=== PATIENT | male | born 1995 | race Caucasian/White ===

== ENCOUNTER 2022-11-10 14:17 | Emergency (ER) | payer MEDICARE, SELFPAY ==
--- NOTE | ~2022-11-10 | XR_ITS ---
EXAMINATION: XR ANKLE, RIGHT CLINICAL INFORMATION: Pain, injury COMPARISON: None available. TECHNIQUE: AP, lateral, and mortise views of the right ankle. FINDINGS: There is moderate lateral lateral malleolar soft tissue swelling. No visible acute fracture, dislocation seen. The ankle mortise and subtalar joints are normal. XR/XR ankle RT min 3V IMPRESSION: Moderate lateral malleolar soft tissue swelling likely ligamentous injury. No visible acute fracture or dislocation seen.
--- NOTE | 2022-11-10 14:36 | ED.GENADULT ---
HPI - General Adult General Chief complaint: Extremity Injury, Lower Stated complaint: r ankle inj Time Seen by Provider: 11/10/22 14:51 Source: patient Mode of arrival: ambulatory Limitations: no limitations History of Present Illness HPI narrative: [age] year male reports to the ER for evaluation of right ankle pain and swelling after he twisted it while playing basketball yesterday. He reports pain is worse with weight-bearing. MD complaint: right ankle pain Onset (ago): day(s) (1) Location: right and lower extremity Radiation: non-radiation Severity: moderate Quality: aching Pain Consistency: intermittent Relieving factors: immobilization and rest Exacerbating factors: movement Associated symptoms: denies other symptoms Treatments prior to arrival: none Related Data Previous Rx's Medication Instructions Recorded ibuprofen 600 mg tablet 600 mg PO Q8H PRN pain #20 tabs 11/10/22 Allergies Allergy/AdvReac Type Severity Reaction Status Date / Time No Known Allergies Allergy Verified 11/10/22 14:41 Review of Systems Review of Systems: Yes all other systems are reviewed and are negative [facility] Social History Social History Advance Directives: No Advance Directives Information Provided: No Physical Exam ED Vital Signs: Vital Signs - 24 hr 11/10/22 14:42 Temperature 97.7 F Pulse Rate 75 Respiratory Rate 16 Blood Pressure 119/71 Pulse Oximetry 99 Oxygen Delivery Method Room Air BMI result Body Mass Index 28.5 Appearance: Alert. Oriented X3. No acute distress. HEENT: normal inspection CVS: Normal heart rate and rhythm. Pulses normal. Respiratory: No respiratory distress. Skin: Skin warm and dry. Normal skin color. Normal skin turgor. No rashes. Extremities: Neuro: Oriented X 3. No motor deficit. No sensory deficit. Ambulates with an antalgic gait Course Course Course Narrative: RME performed by Patricia Evangelista PA-C. Patient is a 27 year old assigned male at presenting to the emergency department with right ankle pain. Imaging ordered. Patient placed back in the waiting room pending room availability and results. Medications Administered Discontinued Medications Generic Name Dose Route Start Last Admin Trade Name Freq PRN Reason Stop Dose Admin Ibuprofen 600 mg 11/10/22 15:50 11/10/22 16:04 Ibuprofen 600 Mg Tablet PO 11/10/22 15:51 600 mg ONCE ONE Administration Medical Decision Making Medical Decision Making MDM Narrative: 27-year-old male presents to the ER for evaluation of right ankle pain and swelling after a twisting injury while playing basketball yesterday. He has swelling and bruising to both medial and lateral aspects of the ankle but he is able to bear weight. He has normal range of motion. He is neurovascularly intact. X-ray today does not show any acute fracture. He most likely has a significant ankle sprain. He was placed in Yohannes wrap for compression and support. NSAIDs were prescribed. Discussed results of the x-ray, plan and management. Stable for discharge home. Differential Diagnosis Differential Diagnoses: The differential diagnosis associated with the presentation includes ankle sprain, ankle strain, ankle fracture, torn ligament, contusion Independent Interpretation I performed an independent interpretation of an: Plain X-Ray Interpretation: well-appearing right ankle, no evidence of acute fracture, agree with radiologist read Radiology Impression Discussion of test interpretation with radiology: I have reviewed the radiologist's reading. Radiologist Impression: EXAMINATION: XR ANKLE, RIGHT CLINICAL INFORMATION: Pain, injury? COMPARISON: None available.? TECHNIQUE: AP, lateral, and mortise views of the right ankle. FINDINGS: There is moderate lateral lateral malleolar soft tissue swelling. No visible acute fracture, dislocation seen. The ankle mortise and subtalar joints are normal.? XR/XR ankle RT min 3V IMPRESSION: Moderate lateral malleolar soft tissue swelling likely ligamentous injury. No visible acute fracture or dislocation seen.? ? Prescription Management I considered prescription management with: Pain Medication Critical Care Time Critical Care Time Critical Care Time: No Discharge Plan Discharge Clinical Impression: Ankle sprain and strain Patient Disposition: Home, Self-Care Instructions: Ankle Sprain (DC) Additional Instructions: Your x-ray today showed ankle soft tissue swelling but no acute fracture Rest your ankle and elevate your foot when possible. Recommend YOHANNES wrap for support and compression. Use ice several times per day for the next 48 hours. You may bear weight as tolerated. If pain is too severe, use crutches until better. Take Motrin and/or Tylenol as needed for pain. Follow up with your doctor as needed. Vazquez radiograf?a de hoy mostr? hinchaz?n de los tejidos blandos del tobillo, carmelo no ramona fractura aguda. Descanse el tobillo y eleve el pie cuando sea posible. Recomiende la envoltura YOHANNES para soporte y compresi?n. Use hielo varias veces al d?a andrae las pr?ximas 48 horas. Puede cargar peso seg?n lo tolere. Si el dolor es demasiado intenso, use muletas hasta que mejore. [place] Motrin y/o Tylenol seg?n sea necesario para el dolor. Shabana un seguimiento con vazquez m?dico seg?n sea necesario. Prescriptions: New ibuprofen 600 mg tablet 600 mg PO Q8H PRN (Reason: pain) Qty: 20 0RF Print Language: Urdu
[2022-11-10 14:42] VITALS: BP 119/71; PULSE 75; RESP 16; TEMP 36.5; O2SAT 99; BMI 28.5
[2022-11-10] MEDS: Ibuprofen 600 MG TABLET PO (16:04)
== END 2022-11-10 16:50 | disposition home or self-care (01) ==
PROVIDERS: Emergency Provider Emergency Medicine
DX: S93.401A Sprain of unspecified ligament of right ankle, initial encounter (principal); S96.911A Strain of unspecified muscle and tendon at ankle and foot level, right foot, initial encounter; X50.1XXA Overexertion from prolonged static or awkward postures, initial encounter; Y93.67 Activity, basketball; Y92.310 Basketball court as the place of occurrence of the external cause; Y99.9 Unspecified external cause status
CPT/HCPCS: 73610; 99283